=== PATIENT | female | born 1955 | race Caucasian/White ===

== ENCOUNTER → 2016-10-01 | Outpatient (CLI) | payer OTHER ==
--- NOTE | 2016-10-02 13:46 | MM ---
Reason for exam: screening (asymptomatic). Last mammogram was performed 1 year and 2 months ago. History: Patient is postmenopausal. Physical Findings: A clinical breast exam by your physician is recommended on an annual basis and results should be correlated with mammographic findings. MG Screening Mammo w CAD Bilateral CC and MLO view(s) were taken. Prior study comparison: August 07, 2015, bilateral MG 3d screening mammo w/cad. September 15, 2013, bilateral MG screening mammo w CAD. The breast tissue is heterogeneously dense. This may lower the sensitivity of mammography. No suspicious abnormality. No significant changes when compared with prior studies. ASSESSMENT: Negative, BI-RAD 1 RECOMMENDATION: Routine screening mammogram of both breasts in 1 year.
== END | disposition home or self-care (01) ==
LOC: RADMAMWWP 10:10
PROVIDERS: ATTEND Family Medicine
DX: Z12.31 Encounter for screening mammogram for malignant neoplasm of breast (principal)

== ENCOUNTER → 2017-10-23 | Outpatient (CLI) | payer BC ==
--- NOTE | 2017-10-26 12:40 | MM ---
Reason for exam: screening (asymptomatic). Last mammogram was performed 1 year and 1 month ago. History: Patient is postmenopausal. Physical Findings: A clinical breast exam by your physician is recommended on an annual basis and results should be correlated with mammographic findings. MG 3D Screening Mammo W/Cad Bilateral CC and MLO view(s) were taken. Prior study comparison: October 01, 2016, bilateral MG screening mammo w CAD. August 07, 2015, bilateral MG 3d screening mammo w/cad. There are scattered fibroglandular densities. There is no discrete abnormality. No significant changes when compared with prior studies. ASSESSMENT: Negative, BI-RAD 1 RECOMMENDATION: Routine screening mammogram of both breasts in 1 year.
== END | disposition home or self-care (01) ==
LOC: RADMAMWWP 08:21
PROVIDERS: ATTEND Family Medicine
DX: Z12.31 Encounter for screening mammogram for malignant neoplasm of breast (principal)
CPT/HCPCS: 77063; 77067

== ENCOUNTER → 2018-05-24 | Outpatient (CLI) | payer BC ==
--- NOTE | 2018-05-24 09:59 | BD ---
EXAMINATION TYPE: Axial Bone Density DATE OF EXAM: 05/24/2018 COMPARISON: 2009 CLINICAL HISTORY: post menopausal, Z 78.0 Height: 5'1 Weight: 147 FRAX RISK QUESTIONS: Secondary Osteoporosis: RISK FACTORS HISTORY OF: Postmenopausal woman: y MEDICATIONS: Thyroid Medications: Which medication: Synthroid How Lon years Additional Medications: blood pressure, cholesterol ,diabetes 2 Additional History: EXAM MEASUREMENTS: Bone mineral densitometry was performed using the [employer] System. Bone mineral density as measured about the Lumbar spine is: ----- L1-L4(G/cm2): 1.228 T Score Values are as follows: ----- L2: -0.6 ----- L3: 0.5 ----- L4: 1.5 ----- L1-L4: 0.4 Bone mineral density has: Increased 6.3since study of: 11/27/2009 Bone mineral density about the R hip (g/cm2): 0.851 Bone mineral density about the L hip (g/cm2): 0.840 T Score values are as follows: -----R Neck: -1.3 -----L Neck: -1.4 -----R Total: -0.1 -----L Total :0.1 Bone mineral density has: Increased 6.1 since study of: 11/27/2009 IMPRESSION: Osteopenia (T Score between -2.5 and -1). There is slightly increased risk of fracture and the patient may be considered for treatment. Re-Screen 2-5 years. NOTE: T-SCORE=SD OF THE YOUNG ADULT MEAN.
== END | disposition home or self-care (01) ==
LOC: RADBDWWP 08:48
PROVIDERS: ATTEND Obstetrics & Gynecology
DX: M85.80 Other specified disorders of bone density and structure, unspecified site (principal); Z78.0 Asymptomatic menopausal state
CPT/HCPCS: 77080

== ENCOUNTER → 2018-06-02 | Outpatient (CLI) | payer BC ==
[2018-06-02 12:55] LABS: Basophils # (A) 0.1 k/uL (0-0.2); Basophils % (A) 1 %; Eosinophils # (A) 0.3 k/uL (0-0.7); Eosinophils % (A) 3 %; HCT 44.6 % (34.0-46.0); HGB 13.9 gm/dL (11.4-16.0); Lymphocytes % (A) 31 %; MCH 27.2 pg (25.0-35.0); MCHC 31.1 g/dL (31.0-37.0); MCV 87.6 fL (80.0-100.0); Mean Platelet Volume 6.7; Monocytes # (A) 0.6 k/uL (0-1.0); Monocytes % (A) 6 %; Neutrophils # (A) 5.8 k/uL (1.3-7.7); Neutrophils % (A) 59 %; Platelet Count 249 k/uL (150-450); RBC 5.09 m/uL (3.80-5.40); RDW 15.4 % (11.5-15.5)
== END | disposition home or self-care (01) ==
LOC: LABPAT 12:12
PROVIDERS: ATTEND Obstetrics & Gynecology
DX: Z01.818 Encounter for other preprocedural examination (principal)
CPT/HCPCS: 36415; 85025; 93005

== ENCOUNTER 2018-06-09 06:06 | Day surgery (SDC) | payer BC ==
[2018-06-04 14:04] VITALS: BMI 27.8
--- NOTE | 2018-06-08 20:12 | P.HPOB ---
History of Present Illness H&P Date: 06/08/18 Chief Complaint: Postmenopausal bleeding, endometrial thickening This is a 63-year-old female 3 para 3 who presents for dilation and curettage with hysteroscopy secondary to postmenopausal bleeding and endometrial thickening. She stated she initially had an episode of postmenopausal bleeding in January that lasted 2-3 hours but then did start to notice some again in April. The bleeding was bright red and heavy but no clots were noted. The initial bleeding episode lasted about 3 hours. She began bleeding again around May 05 and continued with light spotting about every other day up until the present. Pelvic ultrasound was performed that showed a uterus measuring 6.4 x 4.7 x 3 cm with an endometrial stripe thickness of 7 mm and normal-appearing ovaries. In light of this finding along with her continued post-with a possible spotting, the decision is made to proceed with dilation and curettage with hysteroscopy for further evaluation. Obstetrical history: . History of 3 vaginal deliveries. Gynecologic history: No history of sexual transmitted diseases. Onset of menses was at age 13 and menopause was at age 51. Social history: She is . She works for [employer] in [place]. Review of Systems Constitutional: Reports night sweats, Denies chills, Denies fever Eyes: bilateral blurred vision Ears, nose, mouth and throat: Denies headache, Denies sore throat Cardiovascular: Denies chest pain, Denies shortness of breath Respiratory: Denies cough Gastrointestinal: Denies abdominal pain, Denies diarrhea, Denies nausea, Denies vomiting Genitourinary: Reports abnormal vaginal bleeding, Reports pelvic pain Menstruation: Reports postmenopausal Musculoskeletal: Denies myalgias Integumentary: Denies pruritus, Denies rash Neurological: Reports numbness (Occasionally in fingers) Psychiatric: Reports change in sleep habits, Denies anxiety, Denies depression Endocrine: Reports flushing Past Medical History Past Medical History: Diabetes Mellitus, Hyperlipidemia, Hypertension, Thyroid Disorder History of Any Multi-Drug Resistant Organisms: None Reported Additional Past Surgical History / Comment(s): D&C, Past Anesthesia/Blood Transfusion Reactions: Motion Sickness Past Psychological History: No Psychological Hx Reported Smoking Status: Never smoker Past Alcohol Use History: None Reported Past Drug Use History: None Reported - Past Family History Mother Family Medical History: Hypertension Medications and Allergies Home Medications Medication Instructions Recorded Confirmed Type Cholecalciferol [Vitamin D3] 2,000 unit PO DAILY 06/04/18 06/04/18 History Glimepiride [Amaryl] 2 mg PO BID 06/04/18 06/04/18 History Levothyroxine Sodium [Synthroid] 112 mcg PO DAILY 06/04/18 06/04/18 History Lisinopril 20 mg PO DAILY 06/04/18 06/04/18 History Simvastatin 10 mg PO HS 06/04/18 06/04/18 History Vitamin B Complex 1 each PO DAILY 06/04/18 06/04/18 History Allergies Allergy/AdvReac Type Severity Reaction Status Date / Time No Known Allergies Allergy Verified 06/04/18 13:57 Exam Osteopathic Statement: *. No significant issues noted on an osteopathic structural exam other than those noted in the History and Physical/Consult. HEENT: Within normal limits Heart: Regular rate and rhythm Lungs: Clear to auscultation bilaterally Abdomen: Soft, nontender Pelvic exam: Grade 2 cystocele and grade 2 rectocele are noted along with grade 3 uterine prolapse. Vaginal tissues are slightly atrophic. No adnexal masses or tenderness are noted and uterus appears small and nontender. Extremities: Negative Homans Assessment and Plan (1) Post-menopausal bleeding Status: Acute Code(s): N95.0 - POSTMENOPAUSAL BLEEDING SNOMED Code(s): 87766012 (2) Endometrial thickening on ultrasound Status: Acute Code(s): R93.89 - ABNORMAL FINDINGS ON DX IMAGING OF OTH BODY STRUCTURES SNOMED Code(s): 174566256 Plan: Proceed with dilation and curettage with hysteroscopy. I have discussed the risks, benefits, and alternative therapies for the above- mentioned procedure and for both sedation/anesthesia as well as necessary blood products administration, if indicated, as they pertain to this patient. The patient has indicated her understanding and acceptance of the risks and procedures discussed.
[~2018-06-09 06:06] MED LIST: HYDROmorphone 0.5 MG/0.5 ML SYRINGE IVP PRN; LACTATED RINGERS 1,000 ML IV SCH; LIDOCAINE 1% 20 ML VIAL (10MG/ML) FOR IV START INTRADERMA PRN; ONDANSETRON 4 MG/2 ML VIAL IVP ONE; Pre Op ABX Message 1 EACH MISC MISCELLANE ONE; SCOPOLAMINE 1.5MG/72HR PATCH TRANSDERM ONE
[2018-06-09 07:00] LABS: Glucose,Whole Blood 131 mg/dL (75-99)
[2018-06-09] MEDS ORDERED: MIDAZOLAM 2 MG/2 ML VIAL ONE (07:25)
[2018-06-09] MEDS ORDERED: fentaNYL (PF) 50 MCG/ML 2 ML AMP ONE (07:25)
[2018-06-09] MEDS ORDERED: PROPOFOL 10 MG/ML 20 ML VIAL IV ONE (07:25)
[2018-06-09] MEDS ORDERED: LIDOCAINE 1% INJ 10MG/ML (20 ML MDV) ONE (07:25)
--- NOTE | 2018-06-09 07:57 | P.OP ---
Date of Procedure: 06/09/18 Preoperative Diagnosis: Postmenopausal bleeding Endometrial thickening Postoperative Diagnosis: Same Procedure(s) Performed: Dilation and curettage with hysteroscopy Anesthesia: other (Mask general) Surgeon: Eboni Gutierrez Estimated Blood Loss (ml): 2 Pathology: other (Endometrial curettings) Condition: stable Disposition: same day Indications for Procedure: This is a 63-year-old female 3 para 3 who presents for dilation and curettage with hysteroscopy secondary to postmenopausal bleeding and endometrial thickening. She stated she initially had an episode of postmenopausal bleeding in January that lasted 2-3 hours but then did start to notice some again in April. The bleeding was bright red and heavy but no clots were noted. The initial bleeding episode lasted about 3 hours. She began bleeding again around May 05 and continued with light spotting about every other day up until the present. Pelvic ultrasound was performed that showed a uterus measuring 6.4 x 4.7 x 3 cm with an endometrial stripe thickness of 7 mm and normal-appearing ovaries. In light of this finding along with her continued post-with a possible spotting, the decision is made to proceed with dilation and curettage with hysteroscopy for further evaluation. Operative Findings: Uterus is mid to retroverted and sounded to 8-1/2 cm. Very atrophic endometrial pattern is visualized. Both tubal ostia are visualized. Scant endometrial curettings are obtained. Grade 3 uterine prolapse along with 2 cystocele is noted. Description of Procedure: The patient is taken the operating room where she is placed in the dorsal lithotomy position. She is prepped and draped in the normal sterile fashion. Her bladder is drained with a catheter and then removed. Examination is performed under anesthesia. Uterus is found to be mid to retroverted position with no adnexal masses palpated. Grade 3 uterine prolapse is noted along with grade 2-3 cystocele. The anterior lip of the cervix is grasped with a single- tooth tenaculum and weighted speculum was placed in patient's vagina. Uterus is sounded to 8-1/2 cm. Cervix is gently dilated with Brown dilators until a hysteroscope could be passed. Hysteroscopy is performed using normal saline. The above noted findings are made and pictures are taken. Next the hysteroscope was withdrawn and the cervix was dilated further. A medium-size sharp curet was introduced and curetting was performed until a gritty texture was noted. Very scant endometrial tissue was obtained. Single-tooth tenaculum was removed all other instruments are removed. No bleeding is noted. Estimated blood loss was approximately 2 mL's. Patient is then taken to recovery room in stable condition. All sponge and needle counts are correct.
[2018-06-09 08:10] VITALS: TEMP 97
[2018-06-09 08:28] LABS: Glucose,Whole Blood 132 mg/dL (75-99)
[2018-06-09 09:57] VITALS: BP 133/68; PULSE 54; RESP 18
== END 2018-06-09 10:30 | disposition home or self-care (01) ==
LOC: OR 06:06
PROVIDERS: ATTEND Obstetrics & Gynecology
DX: N95.0 Postmenopausal bleeding (principal); N81.3 Complete uterovaginal prolapse; E11.9 Type 2 diabetes mellitus without complications; E78.5 Hyperlipidemia, unspecified; I10 Essential (primary) hypertension; E07.9 Disorder of thyroid, unspecified; Z79.890 Hormone replacement therapy; Z79.899 Other long term (current) drug therapy
CPT/HCPCS: 88305; 58558; J2250; J2001; J3010; J2704

== ENCOUNTER → 2018-11-09 | Outpatient (CLI) | payer BC ==
--- NOTE | 2018-11-11 10:54 | MM ---
Reason for exam: screening (asymptomatic). Last mammogram was performed 1 year and 1 month ago. History: Patient is postmenopausal. Physical Findings: A clinical breast exam by your physician is recommended on an annual basis and results should be correlated with mammographic findings. MG 3D Screening Mammo W/Cad Bilateral CC and MLO view(s) were taken. Prior study comparison: October 23, 2017, bilateral MG 3d screening mammo w/cad. October 01, 2016, bilateral MG screening mammo w CAD. The breast tissue is heterogeneously dense. This may lower the sensitivity of mammography. There are benign appearing round, vascular, dystrophic calcifications bilaterally. There is no discrete abnormality. ASSESSMENT: Benign, BI-RAD 2 RECOMMENDATION: Routine screening mammogram of both breasts in 1 year.
== END | disposition home or self-care (01) ==
LOC: RADMAMWWP 08:15
PROVIDERS: ATTEND Obstetrics & Gynecology
DX: Z12.31 Encounter for screening mammogram for malignant neoplasm of breast (principal)
CPT/HCPCS: 77063; 77067

== ENCOUNTER → 2018-11-18 | Outpatient (CLI) | payer OTHER | END | disposition home or self-care (01) | LOC: RADBDWWP 08:38 | PROVIDERS: ATTEND Obstetrics & Gynecology | DX: Z53.9 Procedure and treatment not carried out, unspecified reason (principal) ==

== ENCOUNTER → 2018-12-25 | Outpatient (CLI) | payer OTHER ==
[2018-12-25 17:29] LABS: African American GFR (CKD) 56.1 (60.0-200.0); Albumin 4.1 g/dL (3.80-4.90); Albumin/Globulin Ratio 1.41 (1.60-3.17); BUN/Creat Ratio 18.33 Ratio (12.00-20.00); Calcium 9.4 mg/dL (8.7-10.3); Chol/HDL Ratio 2.32; Globulin 2.9 g/dL (1.6-3.3); LDL Cholesterol,Calculated 67.6 mg/dL (0.0-131.0); Non-African American GFR(CKD) 48.4 (60.0-200.0); Potassium 4.8 mmol/L (3.5-5.5); Total Bilirubin 0.7 mg/dL (0.2-1.2); VLDL Calculation 10.4 mg/dL (5.00-40.00)
== END | disposition home or self-care (01) ==
LOC: LABWHC1 10:26
PROVIDERS: ATTEND Internal Medicine Clinical Cardiac Electrophysiology
DX: I10 Essential (primary) hypertension (principal); E78.5 Hyperlipidemia, unspecified; I49.1 Atrial premature depolarization
CPT/HCPCS: 36415; 80053; 80061; 84443

== ENCOUNTER → 2019-12-05 | Outpatient (CLI) | payer OTHER ==
--- NOTE | 2019-12-12 10:25 | MM ---
Reason for exam: screening (asymptomatic). Last mammogram was performed 1 year and 1 month ago. History: Patient is postmenopausal. Physical Findings: A clinical breast exam by your physician is recommended on an annual basis and results should be correlated with mammographic findings. MG 3D Screening Mammo W/Cad Bilateral CC and MLO view(s) were taken. Prior study comparison: November 09, 2018, bilateral MG 3d screening mammo w/cad. October 23, 2017, bilateral MG 3d screening mammo w/cad. The breast tissue is heterogeneously dense. This may lower the sensitivity of mammography. No significant changes when compared with prior studies. ASSESSMENT: Negative, BI-RAD 1 RECOMMENDATION: Routine screening mammogram of both breasts in 1 year.
== END | disposition home or self-care (01) ==
LOC: RADMAMWWP 12:34
PROVIDERS: ATTEND Obstetrics & Gynecology
DX: Z12.31 Encounter for screening mammogram for malignant neoplasm of breast (principal)
CPT/HCPCS: 77063; 77067

== ENCOUNTER → 2021-04-30 | Outpatient (CLI) | payer BC ==
--- NOTE | 2021-05-01 08:31 | XR ---
EXAMINATION TYPE: XR Hip Complete LT DATE OF EXAM: 04/30/2021 COMPARISON: NONE HISTORY: Pain TECHNIQUE: 2 views submitted FINDINGS: There is no evidence of erosive change or acute fracture. Hypertrophic change of the acetabulum with mild concentric narrowing the joint space. Spur involving the greater trochanter. Soft tissue calcifi cations are noted. IMPRESSION: 1. Arthropathy correlate for femoral acetabular impingement.
--- NOTE | 2021-05-01 08:33 | XR ---
EXAMINATION TYPE: XR pelvis AP view DATE OF EXAM: 04/30/2021 COMPARISON: NONE HISTORY: Pain The osseous structures are intact and the joint spaces are preserved. No acute fracture is seen. Vi sualized bowel gas pattern is nonspecific. Degenerative change of the spine. Hypertrophic change of the acetabulum with mild concentric narrowing the joint space. Spur involving the greater trochanter. Soft tissue calcifications are noted. IMPRESSION: 1. 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 2. Spurring involving the bilateral greater trochanter can be associated with trochanteric bursitis c orrelate clinically.
== END | disposition home or self-care (01) ==
LOC: RADXRYALE 16:48
PROVIDERS: ATTEND Physician Assistant
DX: M12.852 Other specific arthropathies, not elsewhere classified, left hip (principal); M12.851 Other specific arthropathies, not elsewhere classified, right hip; M25.751 Osteophyte, right hip; M25.752 Osteophyte, left hip
CPT/HCPCS: 72170; 73502

== ENCOUNTER → 2021-07-17 | Outpatient (CLI) | payer BC ==
[2021-07-17 11:51] VITALS: BMI 26.4
== END ==
LOC: DBWHC3 09:41
PROVIDERS: ATTEND Physician Assistant
DX: E11.9 Type 2 diabetes mellitus without complications (principal)
CPT/HCPCS: G0108 ×3

== ENCOUNTER → 2021-08-07 | Outpatient (CLI) | payer BC ==
[2021-08-07 18:59] LABS: T4, Free (Free Thyroxine) 2.07 ng/dL (0.800-1.800)
== END | disposition home or self-care (01) ==
LOC: LABWHC1 11:40
PROVIDERS: ATTEND Internal Medicine Endocrinology, Diabetes & Metabolism
DX: E03.8 Other specified hypothyroidism (principal)
CPT/HCPCS: 36415; 84439; 84443

== ENCOUNTER → 2022-02-12 | Outpatient (CLI) | payer BC ==
[2022-02-12 17:48] LABS: Basophils # (A) 0.09 X 10*3/uL (0.00-0.10); Eosinophils # (A) 0.36 X 10*3/uL (0.04-0.35); Eosinophils % (A) 4.2 %; HCT 43.6 % (37.2-46.3); HGB 14.2 g/dL (12.0-15.0); Immature Grans, Automated 0.2 %; Lymphocytes # (A) 3.56 X 10*3/uL (0.90-5.00); Lymphocytes % (A) 41.4 %; MCH 29.1 pg (27.0-32.0); MCHC 32.6 g/dL (32.0-37.0); MCV 89.3 fL (80.0-97.0); Mean Platelet Volume 9.8 fL (9.5-12.2); Monocytes # (A) 0.47 X 10*3/uL (0.20-1.00); Monocytes % (A) 5.5 %; NRBC Per 100 WBC 0 /100 WBCS (0.0-0.0); Neutrophils % (A) 47.7 %; Platelet Count 199 X 10*3/uL (140-440); RBC 4.88 X 10*6/uL (4.10-5.20); RDW 14.5 % (11.5-14.5)
[2022-02-12 19:02] LABS: Erythrocyte Sedimentation Rate 17 mm/Hr (0-30)
[2022-02-12 21:06] LABS: Rheumatoid Factor, Qnt <10 IU/mL (0-15); Uric Acid 5.9 mg/dL (2.9-7.7)
== END | disposition home or self-care (01) ==
LOC: LABWHC1 11:42
PROVIDERS: ATTEND Podiatrist Foot & Ankle Surgery
DX: D64.9 Anemia, unspecified (principal); M13.80 Other specified arthritis, unspecified site
CPT/HCPCS: 36415; 84550; 85025; 85652; 86038; 86140; 86431

== ENCOUNTER → 2022-08-14 | Outpatient (CLI) | payer MEDICARE ==
--- NOTE | 2022-08-15 15:41 | MM ---
Reason for Exam: Screening (asymptomatic). Last mammogram was performed 2 year(s) and 8 month(s) ago. Patient History: Menarche at age 12. First Full-Term at age 22. Postmenopausal. Risk Values: Kalyn 5 year model risk: 1.6%. NCI Lifetime model risk: 5.9%. Prior Study Comparison: 10/23/2017 Bilateral Screening Mammogram, [facility]. 11/09/2018 Bilateral Screening Mammogram, [facility]. 12/05/2019 Bilateral Screening Mammogram, [facility]. Tissue Density: There are scattered fibroglandular densities. Findings: Analyzed By CAD. Pattern appears stable. Benign-appearing calcifications appear stable from comparison No suspicious groups of microcalcifications, spiculated or lobular masses, architectural distortion or other secondary signs of malignancy are mammographically apparent. Overall Assessment: Benign, BI-RAD 2 Management: Screening Mammogram of both breasts in 1 year. A negative mammogram report should not preclude additional follow up of suspicious palpable abnormalities. Patient should continue monthly self breast exam. A clinical breast exam by your physician is recommended on an annual basis and results should be correlated with mammographic findings. Electronically signed and approved by: Star Whitten D.O. Radiologis
== END | disposition home or self-care (01) ==
LOC: RADMAMWWP 07:00
PROVIDERS: ATTEND Family Medicine
DX: Z12.31 Encounter for screening mammogram for malignant neoplasm of breast (principal); Z78.0 Asymptomatic menopausal state; L72.3 Sebaceous cyst; E11.65 Type 2 diabetes mellitus with hyperglycemia
CPT/HCPCS: 77063; 77067

== ENCOUNTER → 2023-04-08 | Outpatient (CLI) | payer MEDICARE | END | disposition home or self-care (01) | LOC: RADMAMWWP 08:07 | PROVIDERS: ATTEND Obstetrics & Gynecology | DX: Z53.9 Procedure and treatment not carried out, unspecified reason (principal) ==

== ENCOUNTER → 2023-04-13 | Outpatient (CLI) | payer MEDICARE ==
--- NOTE | 2023-04-13 17:01 | BD ---
EXAMINATION TYPE: Axial Bone Density DATE OF EXAM: 04/13/2023 CLINICAL HISTORY: 68 years old Female. ICD-10 CODE: M85.88 OSTEOPENIA Height: 60 Weight: 143.1 FRAX RISK QUESTIONS: Alcohol (3 or more units per day): no Family History (Parent hip fracture): no Glucocorticoids (More than 3mos): no (Ex: prednisone, prednisolone, methylprednisolone, dexamethasone, and hydrocortisone). History of Fracture in Adulthood: no Secondary Osteoporosis: 1. Type 1 Diabetes: no 2. Hyperthyroidism: no 3. Menopause before 45: yes 4. Malnutrition: no 5. Chronic liver disease: no Rheumatoid Arthritis: no Current Tobacco Use: no [id number] years HISTORY OF: Surgery to Spine/Hip(right/left)/Wrist (right/left): no EXAM MEASUREMENTS: Bone mineral densitometry was performed using the [employer] System. Bone mineral density as measured about the Lumbar spine is: ----- L1-L4(G/cm2): 1.303 T Score Values are as follows: ----- L1: 0.1 ----- L2: 0.0 ----- L3: 0.8 ----- L4: 2.7 ----- L1-L4: 1.0 Z Score Values are as follows: ----- L1: 1.7 ----- L2: 1.6 ----- L3: 2.4 ----- L4: 4.3 ----- L1-L4: 2.6 Bone mineral density has: increased 6.1 % since study of: 05.24.2018 Bone mineral density about the R hip (g/cm2): 0973 Bone mineral density about the L hip (g/cm2): 1.006 T Score values are as follows: -----R Neck: -1.0 -----L Neck: -1.2 -----R Total: -0.3 -----L Total: 0.0 Z Score values are as follows: -----R Neck: 0.5 -----L Neck: 0.4 -----R Total: 1.0 -----L Total: 1.3 Bone mineral density has: decreased -1.7 % since study of: 05.24.2018 FRAX%s: The graph provided illustrates a 8.7% chance for a major osteoporotic fx and a 0.8% chance fo r the hips probability for fx in 10 years time. IMPRESSION: Osteopenia (T Score between -2.5 and -1). There is slightly increased risk of fracture and the patient may be considered for treatment. Re-Screen 2-5 years. NOTE: T-SCORE=SD OF THE YOUNG ADULT MEAN.
== END | disposition home or self-care (01) ==
LOC: RADBDWWP 07:56
PROVIDERS: ATTEND Obstetrics & Gynecology
DX: Z13.820 Encounter for screening for osteoporosis (principal); M81.0 Age-related osteoporosis without current pathological fracture; M85.89 Other specified disorders of bone density and structure, multiple sites
CPT/HCPCS: 77080

== ENCOUNTER → 2023-08-13 | Outpatient (CLI) | payer MEDICARE ==
--- NOTE | 2023-08-13 09:50 | XR ---
EXAMINATION TYPE: XR foot complete LT DATE OF EXAM: 08/13/2023 9:34 AM CLINICAL INDICATION:Female, 68 years old with history of [id number] LT TOE PAIN; COMPARISON: None TECHNIQUE: XR foot complete LT examined in the AP, oblique, and lateral projections. FINDINGS: No evidence of any acute osseous pathology. Mild soft tissue swelling without evidence for osseous er osion. Calcaneal plantar spurring is present. Calcaneal Achilles enthesophyte. Multifocal degeneratio n changes throughout the joints of the foot with osteophyte formation and joint space narrowing. IMPRESSION: 1. Soft tissue swelling without evidence for osseous erosion. No evidence of fracture. 2. Mild multifocal degeneration changes throughout the joints of the foot.
== END | disposition home or self-care (01) ==
LOC: RADXRYALE 09:13
PROVIDERS: ATTEND Physician Assistant
DX: M19.072 Primary osteoarthritis, left ankle and foot (principal)

== ENCOUNTER → 2024-05-10 | Outpatient (CLI) | payer MEDICARE ==
--- NOTE | 2024-05-10 10:07 | MM ---
Reason for Exam: Screening (asymptomatic). Last mammogram was performed 1 year(s) and 9 month(s) ago. Patient History: Menarche at age 12. First Full-Term at age 22. Postmenopausal. Risk Values: Kalyn 5 year model risk: 1.7%. NCI Lifetime model risk: 5.5%. Prior Study Comparison: 11/09/2018 Bilateral Screening Mammogram, [facility]. 12/05/2019 Bilateral Screening Mammogram, [facility]. 08/14/2022 Bilateral MG 3D screening mammo w/cad, [facility]. Tissue Density: The breasts are heterogeneously dense, which may obscure small masses. Findings: Analyzed By CAD. Benign-appearing calcifications. There is no suspicious group of microcalcifications or new suspicious mass in either breast. Overall Assessment: Benign, BI-RAD 2 Management: Screening Mammogram of both breasts in 1 year. . Patient should continue monthly self-breast exams. A clinical breast exam by your physician is recommended on an annual basis. This exam should not preclude additional follow-up of suspicious palpable abnormalities. Note on Kalyn scores and lifetime risk: 1. A Kalyn score greater than 3% is considered moderate risk. If this is the case, consider specialist referral to assess eligibility for a risk reducing agent. 2. If overall lifetime risk for the development of breast cancer is 20% or higher, the patient may qualify for future screening with alternating mammogram and breast MRI. [facility], , 05/10/2024 10:03 AM. Electronically signed and approved by: Rakan Caro M.D. Radiologis
== END | disposition home or self-care (01) ==
LOC: RADMAMWWP 09:12
PROVIDERS: ATTEND Family Medicine
DX: Z12.31 Encounter for screening mammogram for malignant neoplasm of breast (principal); R92.333 Mammographic heterogeneous density, bilateral breasts; L72.3 Sebaceous cyst; E11.65 Type 2 diabetes mellitus with hyperglycemia; Z78.0 Asymptomatic menopausal state
CPT/HCPCS: 77063; 77067